=== PATIENT | male | born 1990 | race Caucasian/White ===

== ENCOUNTER 2016-11-03 18:06 | Emergency (ER) | payer BC ==
[~2016-11-03 18:06] MED LIST: NAPROXEN PO; NO MEDICATIONS
== END 2016-11-03 18:55 | disposition home or self-care (01) ==
LOC: CFTX 18:06 → CED 18:06 → CFTX 18:37
DX: S80.861A Insect bite (nonvenomous), right lower leg, initial encounter (principal); L03.115 Cellulitis of right lower limb; R56.9 Unspecified convulsions; F17.210 Nicotine dependence, cigarettes, uncomplicated; Z79.899 Other long term (current) drug therapy; W57.XXXA Bitten or stung by nonvenomous insect and other nonvenomous arthropods, initial encounter
CPT/HCPCS: 99282

== ENCOUNTER 2016-12-02 02:51 | Emergency (ER) | payer BC | END 2016-12-02 05:00 | disposition home or self-care (01) | LOC: CED 02:51 | DX: K08.89 Other specified disorders of teeth and supporting structures (principal); F17.210 Nicotine dependence, cigarettes, uncomplicated | CPT/HCPCS: 99282 ==